=== PATIENT | female | born 1990 | race African-American/Black ===

== ENCOUNTER 2024-11-09 19:45 | Emergency (ER) | payer MEDICAID ==
[~2024-11-09] VITALS: Ht 165.1 cm; Wt 78.0 kg
[2024-11-09 19:48] VITALS: BP 131/83; PULSE 88; RESP 18; TEMP 36.3; O2SAT 98
[2024-11-09 21:59] LABS: BASOPHILS % 0.5 % (0.0-2.0); EOSINOPHILS % 0.4 % (0.0-5.0); HEMATOCRIT. 32.9 % (36.0-48.0); HEMOGLOBIN. 10.2 g/dL (12.0-16.0); LYMPHOCYTES % 32.8 % (20.0-50.0); MEAN CORPUSCULAR HEMOGLOBIN 20.8 pg (28.0-32.0); MEAN CORPUSCULAR VOLUME 66.9 fL (81.0-99.0); MEAN PLATELET VOLUME 10.1 fl (7.4-10.4); MONOCYTES % 12.7 % (2.0-8.0); NEUTROPHILS % 53.6 % (40.0-76.0); PLATELET 384 x1000/uL (130-400); RED BLOOD CELL COUNT 4.91 mill/uL (4.2-5.4); RED CELL DISTRIBUTION WIDTH 18.9 % (11.6-14.6); WHITE BLOOD COUNT 6.7 x1000/uL (4.5-11.0)
[2024-11-09 22:04] LABS: ADD RBC MORPHOLOGY YES; DIFFERENTIAL COMMENT 1
[2024-11-09 22:07] LABS: CHLORIDE 105 mEq/L (98-107); POTASSIUM 4.2 mEq/L (3.5-5.1); SODIUM 137 mEq/L (136-145)
[2024-11-09 22:08] LABS: CARBON DIOXIDE 25 mEq/L (21-32)
[2024-11-09 22:09] LABS: CALCIUM 9.3 mg/dL (8.7-10.4)
[2024-11-09 22:14] LABS: GLUCOSE 291 mg/dL (70-105); UREA NITROGEN BLOOD 10 mg/dL (9-23)
[2024-11-09 22:15] LABS: ALBUMIN 4.5 g/dL (3.2-4.8)
[2024-11-09 22:16] LABS: ALANINE AMINOTRANSFERASE 13 IU/L (10-49); ASPARTATE AMINOTRANSFERASE 13 IU/L (<34); BILIRUBIN TOTAL 0.2 mg/dL (0.1-1.0); PROTEIN TOTAL 7.1 g/dL (6.0-8.3)
[2024-11-09 22:17] LABS: BILIRUBIN DIRECT < 0.1 mg/dL (<=3.0)
[2024-11-09 22:39] LABS: HCG SCREEN NEGATIVE
[2024-11-09 23:07] LABS: ANISOCYTOSIS 2+; HYPOCHROMASIA 2+; MICROCYTOSIS 3+; PLATELET ESTIMATE NORMAL
[2024-11-09] MEDS ORDERED: SENN-362 MT (23:20)
[2024-11-09] MEDS ORDERED: POLY17PO3 MT (23:20)
[2024-11-09] MEDS ORDERED: DOCU-138 MT (23:20)
== END 2024-11-09 23:45 | disposition home or self-care (01) ==
LOC: ER 19:45
DX: K59.00 Constipation, unspecified (principal); E11.9 Type 2 diabetes mellitus without complications; F20.9 Schizophrenia, unspecified; Z79.899 Other long term (current) drug therapy
CPT/HCPCS: 36415; 80048; 80076; 84703; 85025; 99283